=== PATIENT | male | born 1960 | race Caucasian/White ===

== ENCOUNTER 2022-03-13 09:15 | Outpatient (RCR) | payer BC, SELFPAY | END 2023-01-17 23:59 | disposition home or self-care (01) | PROVIDERS: PCP Family Medicine; Visit Provider Family Medicine | DX: M19.031 Primary osteoarthritis, right wrist (principal); M19.032 Primary osteoarthritis, left wrist; Z51.89 Encounter for other specified aftercare | CPT/HCPCS: 97033; 97035; 97140; 97166; 97530 ==

== ENCOUNTER 2024-06-02 10:00 | Outpatient (RCR) | payer MEDICARE, SELFPAY | END 2024-08-03 09:00 | disposition home or self-care (01) | PROVIDERS: PCP Student in an Organized Health Care Education/Training Program; Visit Provider Student in an Organized Health Care Education/Training Program | DX: R42 Dizziness and giddiness (principal); M99.01 Segmental and somatic dysfunction of cervical region; Z74.09 Other reduced mobility; Z51.89 Encounter for other specified aftercare | CPT/HCPCS: 97140; 97161 ==